=== PATIENT | female | born 1985 | race Caucasian/White ===

== ENCOUNTER 2018-09-20 18:46 | Emergency (ER) | payer SELFPAY ==
[2018-09-20 19:48] LABS: Hematocrit 39.3 % (30.3-42.9); Hemoglobin 12.8 gm/dl (10.1-14.3); Mean Corpuscular HGB Conc 33 % (30-34); Mean Corpuscular Volume 77 fl (79-97); Platelet Count 298 K/mm3 (140-440); Red Blood Count 5.13 M/mm3 (3.65-5.03); Red Cell Distribution Width 13.4 % (13.2-15.2)
[2018-09-20 19:59] LABS: BUN/Creatinine Ratio 18; Blood Urea Nitrogen 11 mg/dL (7-17); Calcium 9.4 mg/dL (8.4-10.2); Hemolysis Index 6
[2018-09-20 20:23] LABS: Bacteria,Urine 1+ /HPF (Negative); Bilirubin,Urine NEG (Negative); Blood,Urine NEG (Negative); Color,Urine Straw (Yellow); Protein,Urine <15 mg/dL mg/dL (Negative); Urobilinogen,Urine < 2.0 mg/dL (<2.0)
[2018-09-20 20:28] LABS: HCG Qualitative,Urine Negative (Negative)
--- NOTE | 2018-09-20 22:03 | Emergency Department Report ---
ED Headache HPI - General Chief Complaint: Headache Stated Complaint: HBP/HEADACHE/VOMITING Time Seen by Provider: 09/20/18 21:57 - History of Present Illness Initial Comments: 33-year-old Serbian female comes in plane of headache nausea vomiting dizziness. Patient was here last week for the same issues but has not followed up. Patient reports that she has no headache at this time as she had taken her Fioricet at 1800 until her Excedrin Migraine at 1700. Patient reports that she had a fever a few days ago at MAXIMUM TEMPERATURE of 103 and she had nausea and vomiting yesterday. Patient reports that she feels much better after taking her medications. Patient was prescribed. Fioricet 09/11/2018. Patient denies any neurological deficits. Quality: severe (has resolved.) Head Injury Location: frontal, temporal Recent Head Trauma: frequent headaches Associated Symptoms: fever/chills (resolved), nausea/vomiting (resolved) Allergies/Adverse Reactions: Allergies No Known Allergies Allergy (Verified 11/24/15 20:13) Home Medications: Ambulatory Orders Pnv Plus Multivit Tab 1 cap PO QDAY 11/24/15 Butalb/Acetaminophen/Caffeine [Fioricet 50-300-40 mg CAP] 1 cap PO Q6HR PRN #24 cap 09/11/18 amLODIPine [Norvasc] 2.5 mg PO DAILY #30 tab 09/20/18 ED Review of Systems ROS: Stated complaint: HBP/HEADACHE/VOMITING Other details as noted in HPI Comment: All other systems reviewed and negative Neurological: headache (resolved) ED Past Medical Hx - Past Medical History Previous Medical History?: Yes Hx Hypertension: No Hx Congestive Heart Failure: No Hx Diabetes: No Hx Deep Vein Thrombosis: No Hx Renal Disease: No Hx Sickle Cell Disease: No Hx Headaches / Migraines: Yes Hx Seizures: No Hx Asthma: No Hx COPD: No Hx HIV: No - Surgical History Past Surgical History?: No - Social History Smoking Status: Never Smoker Substance Use Type: None - Medications Home Medications: Home Medications Medication Instructions Recorded Confirmed Last Taken Type Pnv Plus Multivit Tab 1 cap PO QDAY 11/24/15 11/25/15 11/23/15 History 1 Butalb/Acetaminophen/Caffeine 1 cap PO Q6HR PRN #24 cap 09/11/18 Unknown Rx [Fioricet 50-300-40 mg CAP] amLODIPine [Norvasc] 2.5 mg PO DAILY #30 tab 09/20/18 Unknown Rx ED Physical Exam - General Limitations: No Limitations General appearance: alert - Head Head exam: Present: atraumatic, normocephalic - Eye Eye exam: Present: PERRL, EOMI - ENT ENT exam: Present: mucous membranes moist - Respiratory Respiratory exam: Present: normal lung sounds bilaterally. Absent: respiratory distress - Cardiovascular Cardiovascular Exam: Present: regular rate, normal rhythm. Absent: systolic murmur, diastolic murmur, rubs, gallop - Expanded Neurological Exam Expanded Speech: Present: fluid speech Cranial nerves: EOM's Intact: Normal, Gag Reflex: Normal, Tongue Deviation: Normal, Nystagmus: Normal, Facial Sensation: Normal, Facial Palsy with Forehead Movement: Normal, Facial Palsy without Forehead Movement: Normal Cerebellar function: Finger to Nose: Normal, Heel to [place]: Normal, Romberg: Normal Upper motor neuron: Ronan Neglect: Normal, Pronator Drift: Normal, Babinski Sign: Normal, Sensory Extinction: Normal Sensory exam: Upper Extremity Light Touch: Normal, Upper Extremity Pin Prick: Normal, Upper Extremity Temperature: Normal, UE 2 Point Discrimination: Normal, Lower Extremity Light Touch: Normal, Lower Extremity Pin Prick: Normal, Lower Extremity Temperature: Normal, LE 2 Point Discrimination: Normal Motor strength exam: RUE: 4, LUE: 4, RLE: 4, LLE: 4 Best Eye Response (Loyal): (4) open spontaneously Best Motor Response (Allyson): (6) obeys commands Best Verbal Response (Loyal): (5) oriented Allyson Total: 15 - Psychiatric Psychiatric exam: Present: normal affect, normal mood - Skin Skin exam: Present: warm, dry, intact, normal color. Absent: rash ED Course Vital Signs 09/20/18 18:57 Temperature 97.7 F Pulse Rate 72 Respiratory 16 Rate Blood Pressure 147/102 O2 Sat by Pulse 100 Oximetry ED Medical Decision Making - Lab Data Result diagrams: 09/20/18 19:25 09/20/18 19:25 - Medical Decision Making Patient has been evaluated by this provider in fast track. Patient's headache has resolved since she had taken her fioricet an Excedrin prior to arrival. Head CT was ordered which shows normal examination. Discussed patient since her blood pressures marginally elevated with a diastolic of 102 that I will start her on amlodipine 2.5 mg and for her to check her blood pressure at home as she does often in if diastolic numbers still above 92 increase her amlodipine to 5 mg daily. I discussed the patient that she needs to follow-up with the primary care provider and her neurologist. I have referred her to [address] in her neurologist. Patient verbalized understanding Critical care attestation.: If time is entered above; I have spent that time in minutes in the direct care of this critically ill patient, excluding procedure time. ED Disposition Clinical Impression: Elevated blood pressure reading without diagnosis of hypertension Headache Qualifiers: Headache type: tension-type Headache chronicity pattern: acute headache Intractability: intractable Qualified Code(s): G44.201 - Tension-type headache, unspecified, intractable Disposition: DC-01 TO HOME OR SELFCARE Is pt being admited?: No Does the pt Need Aspirin: No Condition: Stable Instructions: Low Sodium Diet (ED), DASH Eating Plan (ED), Hypertension (ED), Aspirin Combination (By mouth), Tension Headache (ED) Additional Instructions: Please take medication as prescribed. It is very important for you to follow-up with a primary care provider and her neurologist. I have listed their information below for your convenience. Prescriptions: amLODIPine [Norvasc] 2.5 mg PO DAILY #30 tab Referrals: SERGIO BARKER MD [Primary Care Provider] - 3-5 Days [facility] [Provider Group] - 3-5 Days EDMUNDO KERR MD [Referring] - 3-5 Days Forms: Accompanied Note
--- NOTE | 2018-09-20 22:13 | Cat Scan Report ---
FINAL REPORT EXAM: CT HEAD/BRAIN WO CON HISTORY: dizziness,N/V,headaches TECHNIQUE: 2.5 millimeter axial images from the skullbase to the vertex. Comparison: None FINDINGS: There is no evidence of an acute intracranial process, intracranial hemorrhage or mass effect. The ventricles are normal size. The visualized portions of the orbits, paranasal and mastoid sinuses are unremarkable. The bony structures are unremarkable. IMPRESSION: 1. No evidence of an acute intracranial process, intracranial hemorrhage or mass effect. If there is a clinical suspicion of an acute intracranial process, MRI brain may be helpful for furth er evaluation.
[2018-09-20 23:32] VITALS: BP 132/94
== END 2018-09-20 23:31 | disposition home or self-care (01) ==
LOC: ED 18:46
DX: G44.201 Tension-type headache, unspecified, intractable (principal); R03.0 Elevated blood-pressure reading, without diagnosis of hypertension
CPT/HCPCS: 36415; 70450; 80048; 81001; 81025; 85027

== ENCOUNTER 2019-12-19 22:58 | Emergency (ER) | payer SELFPAY ==
[2019-12-20] MEDS ORDERED: LIDOCAINE-MPF (1%) 10 MG/1 ML VIAL 5 ML INFILTRATI ONE (02:17)
[2019-12-20] MEDS ORDERED: LIDOCAINE-MPF (1%) 10 MG/1 ML VIAL 5 ML ONE (02:17)
[2019-12-20] MEDS ORDERED: ONDANSETRON 4 MG ODT TAB PO ONE (02:20)
[2019-12-20] MEDS ORDERED: IBUPROFEN 600 MG TAB PO ONE (02:20)
[2019-12-20] MEDS ORDERED: HYDROcodone/ACETAMINOPHEN 5-325 MG TAB PO ONE (02:20)
[2019-12-20] MEDS ORDERED: TETANUS,DIPH,PERTUSS(ACELL) VACCINE 0.5 ML SYRINGE IM ONE (02:20)
--- NOTE | 2019-12-20 04:58 | Emergency Department Report ---
- General Chief Complaint: Wound/Laceration Stated Complaint: LEFT FINGER LACERTION Source: patient Mode of arrival: Ambulatory Limitations: No Limitations - History of Present Illness Initial Comments: Patient is a 34-year-old Irish [place] female with no past medical history who presented to the ED with complaint of acute onset persistent painful bleeding left index finger laceration after she accidentally cut her distal left index finger when cutting potatoes at home about 2 hours ago. Patient states that the bleeding is not controlled at this time. Patient also states that she is not up-to-date with her tetanus vaccinations. Patient denies dizziness, numbness and tingling or weakness of left hand or left index finger, nausea, vomiting, fall, or headache. -: Sudden, hour(s) (2) Location: other (left index finger) Extremity Location: Left: Hand (Left index finger laceration) Place: home Patient Tetanus UTD: No (Given booster tetanus vaccination during this visit) Context: accidental, sharp object use Associated Symptoms: pain. denies: loss of feeling/numbness, suspect foreign body present, unable to move injured part, weakness followed by dizziness, nausea/vomiting, fever, other - Related Data Home Medications Medication Instructions Recorded Confirmed Last Taken Pnv Plus Multivit Tab 1 cap PO QDAY 11/24/15 11/25/15 11/23/15 1 Previous Rx's Medication Instructions Recorded Last Taken Type Butalb/Acetaminophen/Caffeine 1 cap PO Q6HR PRN #24 cap 09/11/18 Unknown Rx [Fioricet 50-300-40 mg CAP] amLODIPine 2.5 mg PO DAILY #30 tab 09/20/18 Unknown Rx Ibuprofen [Motrin] 600 mg PO Q8H PRN #24 tablet 12/20/19 Unknown Rx cephALEXin [Keflex] 500 mg PO Q8HR #30 cap 12/20/19 Unknown Rx Allergies Allergy/AdvReac Type Severity Reaction Status Date / Time No Known Allergies Allergy Verified 11/24/15 20:13 ED Review of Systems ROS: Stated complaint: LEFT FINGER LACERTION Other details as noted in HPI Constitutional: denies: chills, fever Eyes: denies: eye pain, eye discharge, vision change ENT: denies: ear pain, throat pain Respiratory: denies: cough, shortness of breath, wheezing Cardiovascular: denies: chest pain, palpitations Endocrine: no symptoms reported Gastrointestinal: denies: abdominal pain, nausea, diarrhea Genitourinary: denies: urgency, dysuria, discharge Musculoskeletal: arthralgia (left index finger pain due to a bleeding laceration). denies: back pain, joint swelling Skin: other (Bleeding left index finger laceration). denies: rash, lesions Neurological: denies: headache, weakness, paresthesias Psychiatric: denies: anxiety, depression Hematological/Lymphatic: denies: easy bleeding, easy bruising ED Past Medical Hx - Past Medical History Previous Medical History?: Yes Hx Hypertension: Yes Hx Congestive Heart Failure: No Hx Diabetes: No Hx Deep Vein Thrombosis: No Hx Renal Disease: No Hx Sickle Cell Disease: No Hx Headaches / Migraines: Yes Hx Seizures: No Hx Asthma: No Hx COPD: No Hx HIV: No - Surgical History Past Surgical History?: No - Social History Smoking Status: Never Smoker Substance Use Type: None - Medications Home Medications: Home Medications Medication Instructions Recorded Confirmed Last Taken Type Pnv Plus Multivit Tab 1 cap PO QDAY 11/24/15 11/25/15 11/23/15 History 1 Butalb/Acetaminophen/Caffeine 1 cap PO Q6HR PRN #24 cap 09/11/18 Unknown Rx [Fioricet 50-300-40 mg CAP] amLODIPine 2.5 mg PO DAILY #30 tab 09/20/18 Unknown Rx Ibuprofen [Motrin] 600 mg PO Q8H PRN #24 tablet 12/20/19 Unknown Rx cephALEXin [Keflex] 500 mg PO Q8HR #30 cap 12/20/19 Unknown Rx ED Physical Exam - General Limitations: No Limitations General appearance: alert, in no apparent distress - Head Head exam: Present: atraumatic, normocephalic, normal inspection - Eye Eye exam: Present: normal appearance, PERRL, EOMI Pupils: Present: normal accommodation - ENT ENT exam: Present: normal exam, normal orophraynx, mucous membranes moist, TM's normal bilaterally, normal external ear exam - Neck Neck exam: Present: normal inspection, full ROM. Absent: tenderness - Respiratory Respiratory exam: Present: normal lung sounds bilaterally. Absent: respiratory distress, wheezes, rales, rhonchi, chest wall tenderness, decreased breath sounds, other - Cardiovascular Cardiovascular Exam: Present: regular rate, normal rhythm, normal heart sounds. Absent: systolic murmur, diastolic murmur, rubs, gallop - GI/Abdominal GI/Abdominal exam: Present: soft, normal bowel sounds. Absent: tenderness, rebound, hyperactive bowel sounds, hypoactive bowel sounds, organomegaly - Extremities Exam Extremities exam: Present: normal inspection, full ROM, tenderness (Palpable left index finger tenderness due to a bleeding 3 cm laceration on palmar side), normal capillary refill. Absent: calf tenderness - Back Exam Back exam: Present: normal inspection, full ROM. Absent: tenderness, CVA tenderness (R), CVA tenderness (L), muscle spasm, paraspinal tenderness - Neurological Exam Neurological exam: Present: alert, oriented X3, CN II-XII intact, normal gait, reflexes normal - Psychiatric Psychiatric exam: Present: normal affect, normal mood - Skin Skin exam: Present: warm, dry, intact, normal color, other (Bleeding distal left index finger 3 cm laceration on palmar side). Absent: rash ED Course Vital Signs 12/19/19 23:08 Temperature 98.2 F Pulse Rate 80 Respiratory 18 Rate Blood Pressure 142/100 O2 Sat by Pulse 100 Oximetry - Laceration /Wound Repair Left Distal Finger Wound Location: upper extremity (Distal left index finger on palmar side) Wound Length (cm): 3 Wound's Depth, Shape: superficial, linear Wound Explored: contaminated Irrigated w/ Saline (ccs): 50 Betadine Prep?: Yes Anesthesia: 1% Lidocaine Volume Anesthetic (ccs): 5 Wound Debrided: extensive Wound Repaired With: sutures Suture Size/Type: 4:0, proline Number of Sutures: 7 Layer Closure?: No Sterile Dressing Applied?: Yes Progress: Patient tolerated the procedure well. Patient was discharged home on medications including prophylactic antibiotics and was advised to return to the ED in 12 to 14 days for suture removal or immediately if symptoms get worse. ED Medical Decision Making - Medical Decision Making This is a 34-year-old female who presented to the ED with acute onset painful bleeding distal left index finger laceration after she accidentally cut her left finger when cutting some potatoes at home. In the ED, patient is alert and oriented x3 and is not in distress. Patient was treated for pain in the ED and the left index finger laceration was sutured per protocol. Patient tolerated the procedure well and was discharged home on pain medications and prophylactic antibiotics. Patient was advised to return to the ED immediately if symptoms get worse, otherwise return to the ED in 12 to 14 days for suture removal. - Differential Diagnosis laceration; puncture wound; tendon injury Critical care attestation.: If time is entered above; I have spent that time in minutes in the direct care of this critically ill patient, excluding procedure time. ED Disposition Clinical Impression: Laceration of left index finger w/o foreign body w/o damage to nail Qualifiers: Encounter type: initial encounter Qualified Code(s): S61.211A - Laceration without foreign body of left index finger without damage to nail, initial encounter Disposition: TO HOME OR SELFCARE Is pt being admited?: No Does the pt Need Aspirin: No Condition: Stable Instructions: Finger Laceration (ED) Additional Instructions: Take medication with food, drink plenty of fluids and follow-up with your primary care physician in 7 to 10 days for reevaluation. Return to the ED immediately if symptoms get worse. Otherwise return to the ED in 12 to 14 days for suture removal. Prescriptions: cephALEXin [Keflex] 500 mg PO Q8HR #30 cap Ibuprofen [Motrin] 600 mg PO Q8H PRN #24 tablet PRN Reason: Pain Referrals: REGLA HECK MD [Staff Physician] - 7-10 days Time of Disposition: 04:58 Print Language: MALTESE
[2019-12-20 05:31] VITALS: BP 135/87
== END 2019-12-20 05:05 | disposition home or self-care (01) ==
LOC: ED 22:58
DX: S61.211A Laceration without foreign body of left index finger without damage to nail, initial encounter (principal); I10 Essential (primary) hypertension; G43.909 Migraine, unspecified, not intractable, without status migrainosus; Z79.899 Other long term (current) drug therapy; W26.0XXA Contact with knife, initial encounter; Y93.89 Activity, other specified; Y92.098 Other place in other non-institutional residence as the place of occurrence of the external cause; Y99.8 Other external cause status
CPT/HCPCS: 90471; 90715; 99282; Q0162

== ENCOUNTER 2020-01-03 15:45 | Emergency (ER) | payer SELFPAY ==
[2020-01-03 15:51] VITALS: BP 138/92
--- NOTE | 2020-01-03 16:02 | Emergency Department Report ---
Suture/Staple Removal - [facility] Chief Complaint: Medical Clearance Stated Complaint: REMOVE STICHES Time Seen by Provider: 01/03/20 15:53 When Sutures or Emile Placed: 11-14 Days Ago Wound Location: lreft index finger ED Review of Systems ROS: Stated complaint: REMOVE STICHES Other details as noted in HPI Constitutional: denies: chills, fever Eyes: denies: eye pain, eye discharge, vision change ENT: denies: ear pain, throat pain Respiratory: denies: cough, shortness of breath, wheezing Cardiovascular: denies: chest pain, palpitations Endocrine: no symptoms reported Gastrointestinal: denies: abdominal pain, nausea, diarrhea Genitourinary: denies: urgency, dysuria, discharge Musculoskeletal: denies: back pain, joint swelling, arthralgia Skin: denies: rash, lesions Neurological: denies: headache, weakness, paresthesias Psychiatric: denies: anxiety, depression Hematological/Lymphatic: denies: easy bleeding, easy bruising ED Past Medical Hx - Past Medical History Previous Medical History?: Yes Hx Hypertension: Yes Hx Congestive Heart Failure: No Hx Diabetes: No Hx Deep Vein Thrombosis: No Hx Renal Disease: No Hx Sickle Cell Disease: No Hx Headaches / Migraines: Yes Hx Seizures: No Hx Asthma: No Hx COPD: No Hx HIV: No - Surgical History Past Surgical History?: No - Social History Smoking Status: Never Smoker Substance Use Type: None - Medications Home Medications: Home Medications Medication Instructions Recorded Confirmed Last Taken Type Pnv Plus Multivit Tab 1 cap PO QDAY 11/24/15 11/25/15 11/23/15 History 1 Butalb/Acetaminophen/Caffeine 1 cap PO Q6HR PRN #24 cap 09/11/18 Unknown Rx [Fioricet 50-300-40 mg CAP] amLODIPine 2.5 mg PO DAILY #30 tab 09/20/18 Unknown Rx Ibuprofen [Motrin] 600 mg PO Q8H PRN #24 tablet 12/20/19 Unknown Rx cephALEXin [Keflex] 500 mg PO Q8HR #30 cap 12/20/19 Unknown Rx Suture Removal Exam - Exam General: Vital signs noted. No distress. Alert and acting appropriately. Wound: No Pathologic Erythema, No Tenderness, No Drainage, No Pus, No Wound Dehiscence Other Systems: All other systems reviewed and are unremarkable. ED Course Vital Signs 01/03/20 15:48 Temperature 98.3 F Pulse Rate 95 H Respiratory 18 Rate Blood Pressure 138/92 O2 Sat by Pulse 100 Oximetry - Reevaluation(s) Reevaluation #1: 01/03/20 16:01 Patient is speaking in full sentences with no signs of distress noted. ED Recheck MDM - Medical Decision Making This is a 34-year-old female that presents with suture removal. She is stable and was examined by me. Total of 7 sutures has been removed and patient tolerated well. No signs of wound dehiscence, drainage, or cellulitis. Patient was referred to Follow-up with a primary care doctor in 3-5 days or if symptoms worsen and continue return to emergency room as soon as possible. At time of discharge, the patient does not seem toxic or ill in appearance. No acute signs of distress noted. Patient agrees to discharge treatment plan of care. No further questions noted by the patient. Critical care attestation.: If time is entered above; I have spent that time in minutes in the direct care of this critically ill patient, excluding procedure time. ED Disposition Clinical Impression: Visit for suture removal Disposition: DC-01 TO HOME OR SELFCARE Is pt being admited?: No Does the pt Need Aspirin: No Condition: Stable Instructions: Suture Removal (ED) Additional Instructions: Follow-up with a primary care doctor in 3-5 days or if symptoms worsen and continue return to emergency room as soon as possible. Referrals: PRIMARY CAREMD [Referring] - 3-5 Days REGLA HECK MD [Staff Physician] - 3-5 Days
== END 2020-01-03 16:21 | disposition home or self-care (01) ==
LOC: ED 15:45
DX: Z48.02 Encounter for removal of sutures (principal); I10 Essential (primary) hypertension; Z79.899 Other long term (current) drug therapy

== ENCOUNTER 2021-04-27 19:06 | Inpatient (IN) | payer MEDICAID ==
[2021-04-27 20:41] LABS: Bilirubin,Urine NEG (Negative); Blood,Urine NEG (Negative); Color,Urine Yellow (Yellow); Mucus,Urine FEW /HPF; Protein,Urine <15 mg/dL mg/dL (Negative); Urobilinogen,Urine < 2.0 mg/dL (<2.0)
[2021-04-27 21:59] LABS: Hematocrit 37.4 % (30.3-42.9); Hemoglobin 12.4 gm/dl (10.1-14.3); Mean Corpuscular HGB Conc 33 % (30-34); Mean Corpuscular Volume 78 fl (79-97); Platelet Count 170 K/mm3 (140-440); Red Blood Count 4.82 M/mm3 (3.65-5.03); Red Cell Distribution Width 15.3 % (13.2-15.2)
[2021-04-27 22:19] LABS: Alanine Aminotransferase 12 units/L (7-56); Uric Acid 4.9 mg/dL (3.5-7.6)
[2021-04-27] MEDS ORDERED: PROMETHAZINE 25 MG TAB PO PRN (22:29)
[2021-04-27] MEDS ORDERED: ACETAMINOPHEN 325 MG TAB PO PRN (22:29)
[2021-04-27] MEDS ORDERED: TERBUTALINE 1 MG/1 ML INJ SUB-Q PRN (22:29)
[2021-04-27] MEDS ORDERED: OXYTOCIN 10 UNIT/1 ML INJ IM PRN (22:29)
[2021-04-27] MEDS ORDERED: LIDOCAINE (2%) 20 MG/1 ML VIAL 20 ML MDV INFILTRATI ONE (22:29)
[2021-04-27] MEDS ORDERED: miSOPROStol 200 MCG TAB PR PRN (22:29)
[2021-04-27] MEDS ORDERED: CARBOPROST TROMETHAMINE 250 MCG/1 ML INJ IM PRN (22:29)
[2021-04-27] MEDS ORDERED: fentaNYL 100 MCG/2 ML INJ IV PRN (22:29)
[2021-04-27] MEDS ORDERED: NalbUPHINE 10 MG/1 ML INJ IV PRN (22:29)
[2021-04-27] MEDS ORDERED: ONDANSETRON 4 MG/2 ML INJ IV PRN (22:29)
[2021-04-27] MEDS ORDERED: MINERAL OIL 30 ML ORAL LIQD PO PRN (22:29)
[2021-04-27] MEDS ORDERED: LOPERAMIDE 2 MG CAP PO PRN (22:29)
[2021-04-27] MEDS ORDERED: METHYLERGONOVINE MALEATE 0.2 MG/ML VIAL IM PRN (22:29)
[2021-04-27] MEDS ORDERED: ePHEDrine SULFATE 50 MG/1 ML INJ IV PRN (22:29)
--- NOTE | 2021-04-27 22:41 | History and Physical Report ---
History of Present Illness Date of examination: 04/27/21 Date of admission: 04/27/21 Chief complaint: pt seen in triage, BP elevated and pt with chronic HTN and non-compliant with taking meds ordered. Pt states she controls it with her diet History of present illness: at 37.4wks by LMP c/w EDC. care at [facility]. Pt came to triage after being accidentally spilling a cup of hot tea directly on her abdomen on the right and placed toothpaste for comfort. Pt denies headache. Denies change in vision. Pt states that she has not been taking any labetalol med because she controls her BP by diet only. pt has history of gestational diabetes. Pt admits to movement, denies leakage of fluid or vaginal bleeding. pt admits to contractions and desires epidural. records with Rh neg and pt received rhogam 02/02/21; Rubella immune, VDRL neg, HIV neg, Hep BsAg neg; 1hrgtt 122 and GBS neg. Past History Past Medical History: hypertension, other (Gestational diabetes; Rh negative nad received rhogam 02/02/21; Alpha thal trait, Varicella non-immune) Past Surgical History: no surgical history Social history: no significant social history - Obstetrical History Expected Date of Delivery: 05/14/21 Actual Gestation: 37 Week(s) 5 Day(s) : 4 Hx # Term Pregnancies: 2 (Vacuum asst with 1st preg and GDM; CHTN with both preg) Spontaneous Abortions: 1 Number of Living Children: 2 Medications and Allergies Allergies Allergy/AdvReac Type Severity Reaction Status Date / Time No Known Allergies Allergy Verified 11/24/15 20:13 Home Medications Medication Instructions Recorded Confirmed Last Taken Type Pnv Plus Multivit Tab 1 cap PO QDAY 11/24/15 11/25/15 11/23/15 History 1 Butalb/Acetaminophen/Caffeine 1 cap PO Q6HR PRN #24 cap 09/11/18 Unknown Rx [Fioricet 50-300-40 mg CAP] amLODIPine 2.5 mg PO DAILY #30 tab 09/20/18 Unknown Rx Ibuprofen [Motrin] 600 mg PO Q8H PRN #24 tablet 12/20/19 Unknown Rx cephALEXin [Keflex] 500 mg PO Q8HR #30 cap 12/20/19 Unknown Rx Review of Systems All systems: negative (Hot tea burn to right side of abdomen and contractions) - Vital Signs Vital signs: Vital Signs Pulse Pulse Ox 85 99 04/27/21 19:34 04/27/21 19:34 Temp Pulse Resp BP Pulse Ox 98.3 F 85 18 143/96 99 04/27/21 19:38 04/27/21 22:33 04/27/21 19:38 04/27/21 22:22 04/27/21 22:33 - Physical Exam Breasts: Positive: deferred Cardiovascular: Regular rate Lungs: Positive: Normal air movement Abdomen: Positive: normal appearance (right side of abdomen where pt placed toothpaste to soothe her hot tea burn, shows no erythema. Pt would not let me touch it.) Genitourinary (Female): Positive: normal external genitalia, normal perenium Vulva: both: normal Vagina: Positive: normal moisture Uterus: Positive: enlarged (non-tender gravid) - Obstetrical FHR: category 1 Uterine Contraction Monitor Mode: External Cervical Dilatation: 4 Cervical Effacement Percentage: 50 station: -3 Uterine Contraction Frequency (min): 3-8min Uterine Contraction Pattern: Irregular Uterine Contraction Intensity: Moderate Results Result Diagrams: 04/27/21 21:44 04/27/21 21:44 Abnormal lab results 04/27/21 04/27/21 Range/Units 20:20 21:44 MCV 78 L (79-97) fl MCH 26 L (28-32) pg RDW 15.3 H (13.2-15.2) % Urine WBC (Auto) 9.0 H (0.0-6.0) /HPF All other labs normal. Assessment and Plan Term IUP, latent labor with chronic HTN, non-compliant and pt reports skin burn to right side of abdomen, grossly appears normal; Rh neg s/p rhogam; Varicella non-immune; Alpha thalassemia silent carrier and FOB status unknown. GBS neg 1. Admit to labor and delivery, PIH labs; counseled on the importance of labetalol and possible IV mag sulfate if superimposed preeclampsia 2. Augment with pitocin 3. May have epidural when desired 4. For rhogam if fetus Rh positive Plan of care discussed with patient and all questions encouraged and answered
[2021-04-27] MEDS ORDERED: OXYTOCIN DRIP 30 UNITS/500 ML BAG IV SCH ×2 (23:00)
[2021-04-27] MEDS: LACTATED RINGERS 1,000 ML IV SCH (23:53)
[2021-04-28] MEDS ORDERED: NALOXONE 2 MG/2 ML INJ IV PRN (00:24)
--- NOTE | 2021-04-28 00:24 | Anesthesia Consultation ---
Anesthesia Consult and Med Hx Date of service: 04/28/21 - Airway Anesthetic Teeth Evaluation: Good ROM Head & Neck: Adequate Mental/Hyoid Distance: Adequate Mallampati Class: Class II Intubation Access Assessment: Probably Good - Pulmonary Exam CTA: Yes - Cardiac Exam Cardiac Exam: RRR - Pre-Operative Health Status ASA Pre-Surgery Classification: ASA3 Proposed Anesthetic Plan: Epidural - Pulmonary Hx Asthma: No COPD: No Hx Pneumonia: No - Cardiovascular System Hx Hypertension: Yes - Central Nervous System Hx Seizures: No Hx Psychiatric Problems: No - Endocrine Hx Renal Disease: No Hx End Stage Renal Disease: No Hx Non-Insulin Dependent Diabetes: Yes Hx Hypothyroidism: No Hx Hyperthyroidism: No - Hematic Hx Anemia: No Hx Sickle Cell Disease: No - Other Systems Hx Alcohol Use: No
--- NOTE | 2021-04-28 00:44 | Progress Note ---
Labor Epidural - Labor Epidural Start Time: 00:30 Stop Time: 00:37 Performed by:: CRISTINA DUNAWAY Procedure: Patient is requesting epidural for labor pain. H&P, and labs reviewed. Procedure explained, questions answered, consent obtained. Patient in sitting position with blood pressure cuff and pulse ox on and working. Timeout performed immediately before start of procedure. Sterile chlorahexadine 0.5% prep/drape. 3 mL 1% lidocaine skin wheal at L[3]-L[4]. 18-gauge WooMetead epidural needle advanced to [id number] with saline at [7] cm. 27-gauge spinal needle advanced until clear, free-flowing CSF. Intrathecal dexmedetomidine [5] mcg administered and needle removed. Epidural catheter advanced to [12] cm, negative aspiration for blood and csf, negative test dose 3 ml 1.5% lidocaine with epinephrine. Sterile steri-strips and tegaderm applied, followed by tape reinforcement. Patient tolerated procedure well.
[2021-04-28] MEDS: fentaNYL-BUPIV 2 MCG/ML-0.125% 200 MCG/100 ML BAG EPIDURAL SCH ×2 (01:02→09:29)
[2021-04-28] MEDS: ePHEDrine SULFATE 50 MG/1 ML INJ IV PRN ×2 (02:39→05:55)
[2021-04-28] MEDS: LACTATED RINGERS 1,000 ML IV SCH ×2 (02:49→11:30)
--- NOTE | 2021-04-28 06:15 | Event Note ---
Date: 04/28/21 pt evaluated and FHR category I, pt comfortable with epidural, pelvic 5/70/-2 and ballotable. Will reposition pt in high fowlers position and will AROM when head descend and not ballotable. Will continue IV pitocin. Expect .
--- NOTE | 2021-04-28 09:58 | Progress Note ---
Assessment and Plan A: IUP@ 37.5 wks with CHTN RH neg GBS neg P: Continue monitoring with Pitocin AROM (light mec) IFM/IUPC placed Offer Rhogam pp Anticipate Subjective - Subjective Date of service: 04/28/21 Principal diagnosis: IUP@ 37.5 wks Patient reports: movement normal Objective - Vital Signs Vital Signs: Vital Signs - 12hr 04/27/21 04/27/21 04/27/21 21:58 22:03 22:08 Temperature Pulse Rate 93 H 91 H 76 Respiratory Rate Blood Pressure O2 Sat by Pulse 98 98 98 Oximetry O2 Sat by Pulse Oximetry [ Bilateral] 04/27/21 04/27/21 04/27/21 22:09 22:13 22:18 Temperature Pulse Rate 77 93 H 88 Respiratory Rate Blood Pressure 135/87 O2 Sat by Pulse 97 98 Oximetry O2 Sat by Pulse Oximetry [ Bilateral] 04/27/21 04/27/21 04/27/21 22:22 22:23 22:28 Temperature Pulse Rate 88 89 95 H Respiratory Rate Blood Pressure 143/96 O2 Sat by Pulse 99 98 Oximetry O2 Sat by Pulse Oximetry [ Bilateral] 04/27/21 04/27/21 04/27/21 22:33 22:38 23:05 Temperature Pulse Rate 85 86 87 Respiratory Rate Blood Pressure 136/86 O2 Sat by Pulse 99 99 99 Oximetry O2 Sat by Pulse Oximetry [ Bilateral] 04/27/21 04/27/21 04/27/21 23:10 23:15 23:20 Temperature Pulse Rate 84 92 H 90 Respiratory Rate Blood Pressure O2 Sat by Pulse 99 98 99 Oximetry O2 Sat by Pulse Oximetry [ Bilateral] 04/27/21 04/27/21 04/27/21 23:21 23:22 23:25 Temperature Pulse Rate 81 88 90 Respiratory Rate Blood Pressure 127/83 127/83 O2 Sat by Pulse 97 Oximetry O2 Sat by Pulse Oximetry [ Bilateral] 04/27/21 04/27/21 04/27/21 23:30 23:35 23:40 Temperature Pulse Rate 91 H 83 82 Respiratory Rate Blood Pressure O2 Sat by Pulse 99 99 99 Oximetry O2 Sat by Pulse Oximetry [ Bilateral] 04/27/21 04/27/21 04/28/21 23:50 23:55 00:00 Temperature 98.2 F Pulse Rate 83 84 83 Respiratory 16 Rate Blood Pressure O2 Sat by Pulse 100 99 99 Oximetry O2 Sat by Pulse Oximetry [ Bilateral] 04/28/21 04/28/21 04/28/21 00:05 00:07 00:10 Temperature Pulse Rate 86 81 83 Respiratory Rate Blood Pressure 131/84 O2 Sat by Pulse 99 99 Oximetry O2 Sat by Pulse Oximetry [ Bilateral] 04/28/21 04/28/21 04/28/21 00:15 00:20 00:25 Temperature Pulse Rate 86 84 84 Respiratory Rate Blood Pressure O2 Sat by Pulse 99 100 98 Oximetry O2 Sat by Pulse Oximetry [ Bilateral] 04/28/21 04/28/21 04/28/21 00:30 00:35 00:37 Temperature Pulse Rate 92 H 91 H 86 Respiratory Rate Blood Pressure 122/86 O2 Sat by Pulse 99 98 Oximetry O2 Sat by Pulse Oximetry [ Bilateral] 04/28/21 04/28/21 04/28/21 00:40 00:41 00:43 Temperature Pulse Rate 94 H 96 H 80 Respiratory Rate Blood Pressure 130/83 125/87 O2 Sat by Pulse 98 Oximetry O2 Sat by Pulse Oximetry [ Bilateral] 04/28/21 04/28/21 04/28/21 00:45 00:47 00:49 Temperature Pulse Rate 83 84 82 Respiratory Rate Blood Pressure 120/73 118/73 116/71 O2 Sat by Pulse 98 Oximetry O2 Sat by Pulse Oximetry [ Bilateral] 04/28/21 04/28/21 04/28/21 00:50 00:51 00:53 Temperature Pulse Rate 89 91 H 85 Respiratory Rate Blood Pressure 118/71 119/71 O2 Sat by Pulse 98 Oximetry O2 Sat by Pulse Oximetry [ Bilateral] 04/28/21 04/28/21 04/28/21 00:55 00:57 00:58 Temperature Pulse Rate 84 90 91 H Respiratory Rate Blood Pressure 117/75 116/77 115/74 O2 Sat by Pulse 99 Oximetry O2 Sat by Pulse Oximetry [ Bilateral] 04/28/21 04/28/21 04/28/21 01:00 01:01 01:03 Temperature Pulse Rate 86 80 87 Respiratory Rate Blood Pressure 116/73 116/69 O2 Sat by Pulse 97 Oximetry O2 Sat by Pulse Oximetry [ Bilateral] 04/28/21 04/28/21 04/28/21 01:05 01:10 01:15 Temperature Pulse Rate 90 85 91 H Respiratory Rate Blood Pressure O2 Sat by Pulse 97 97 97 Oximetry O2 Sat by Pulse Oximetry [ Bilateral] 04/28/21 04/28/21 04/28/21 01:20 01:25 01:30 Temperature Pulse Rate 84 88 87 Respiratory Rate Blood Pressure 113/57 O2 Sat by Pulse 97 96 96 Oximetry O2 Sat by Pulse Oximetry [ Bilateral] 04/28/21 04/28/21 04/28/21 01:34 01:35 01:40 Temperature Pulse Rate 93 H 97 H 92 H Respiratory Rate Blood Pressure 106/57 O2 Sat by Pulse 96 96 Oximetry O2 Sat by Pulse Oximetry [ Bilateral] 04/28/21 04/28/21 04/28/21 01:45 01:49 01:50 Temperature Pulse Rate 82 94 H 86 Respiratory Rate Blood Pressure 99/54 O2 Sat by Pulse 96 95 Oximetry O2 Sat by Pulse Oximetry [ Bilateral] 04/28/21 04/28/21 04/28/21 01:51 01:55 02:00 Temperature Pulse Rate 87 81 87 Respiratory Rate Blood Pressure 101/60 O2 Sat by Pulse 97 96 Oximetry O2 Sat by Pulse Oximetry [ Bilateral] 04/28/21 04/28/21 04/28/21 02:04 02:05 02:10 Temperature Pulse Rate 98 H 91 H 85 Respiratory Rate Blood Pressure 104/57 O2 Sat by Pulse 97 97 Oximetry O2 Sat by Pulse Oximetry [ Bilateral] 04/28/21 04/28/21 04/28/21 02:15 02:20 02:25 Temperature Pulse Rate 96 H 71 90 Respiratory Rate Blood Pressure 122/70 O2 Sat by Pulse 97 97 97 Oximetry O2 Sat by Pulse Oximetry [ Bilateral] 04/28/21 04/28/21 04/28/21 02:30 02:34 02:35 Temperature Pulse Rate 96 H 88 83 Respiratory Rate Blood Pressure 98/58 O2 Sat by Pulse 97 97 Oximetry O2 Sat by Pulse Oximetry [ Bilateral] 04/28/21 04/28/21 04/28/21 02:40 02:45 02:46 Temperature Pulse Rate 85 81 80 Respiratory Rate Blood Pressure 96/57 O2 Sat by Pulse 97 99 Oximetry O2 Sat by Pulse Oximetry [ Bilateral] 04/28/21 04/28/21 04/28/21 02:48 02:50 02:55 Temperature Pulse Rate 86 92 H 98 H Respiratory Rate Blood Pressure 108/72 O2 Sat by Pulse 98 97 Oximetry O2 Sat by Pulse Oximetry [ Bilateral] 04/28/21 04/28/21 04/28/21 03:00 03:04 03:05 Temperature Pulse Rate 100 H 100 H 99 H Respiratory Rate Blood Pressure 106/73 O2 Sat by Pulse 95 96 Oximetry O2 Sat by Pulse Oximetry [ Bilateral] 04/28/21 04/28/21 04/28/21 03:10 03:15 03:18 Temperature Pulse Rate 95 H 98 H 96 H Respiratory Rate Blood Pressure O2 Sat by Pulse 97 95 94 Oximetry O2 Sat by Pulse Oximetry [ Bilateral] 04/28/21 04/28/21 04/28/21 03:20 03:25 03:30 Temperature Pulse Rate 96 H 97 H 106 H Respiratory Rate Blood Pressure 116/76 O2 Sat by Pulse 96 96 94 Oximetry O2 Sat by Pulse Oximetry [ Bilateral] 04/28/21 04/28/21 04/28/21 03:35 03:40 03:41 Temperature Pulse Rate 98 H 97 H 100 H Respiratory Rate Blood Pressure 107/64 O2 Sat by Pulse 97 95 94 Oximetry O2 Sat by Pulse Oximetry [ Bilateral] 04/28/21 04/28/21 04/28/21 03:45 03:48 03:49 Temperature Pulse Rate 94 H 98 H 100 H Respiratory Rate Blood Pressure 109/67 O2 Sat by Pulse 95 94 Oximetry O2 Sat by Pulse Oximetry [ Bilateral] 04/28/21 04/28/21 04/28/21 03:50 03:53 03:55 Temperature Pulse Rate 99 H 94 H 102 H Respiratory Rate Blood Pressure O2 Sat by Pulse 95 93 95 Oximetry O2 Sat by Pulse Oximetry [ Bilateral] 04/28/21 04/28/21 04/28/21 04:00 04:04 04:05 Temperature Pulse Rate 100 H 97 H 103 H Respiratory Rate Blood Pressure 119/82 O2 Sat by Pulse 97 96 Oximetry O2 Sat by Pulse Oximetry [ Bilateral] 04/28/21 04/28/21 04/28/21 04:10 04:15 04:19 Temperature Pulse Rate 93 H 98 H 96 H Respiratory Rate Blood Pressure 115/79 O2 Sat by Pulse 97 96 Oximetry O2 Sat by Pulse Oximetry [ Bilateral] 04/28/21 04/28/21 04/28/21 04:20 04:25 04:30 Temperature Pulse Rate 99 H 109 H 103 H Respiratory Rate Blood Pressure O2 Sat by Pulse 96 98 98 Oximetry O2 Sat by Pulse Oximetry [ Bilateral] 04/28/21 04/28/21 04/28/21 04:34 04:35 04:40 Temperature Pulse Rate 101 H 102 H 97 H Respiratory Rate Blood Pressure 117/73 O2 Sat by Pulse 96 98 Oximetry O2 Sat by Pulse Oximetry [ Bilateral] 04/28/21 04/28/21 04/28/21 04:45 04:49 04:50 Temperature Pulse Rate 93 H 100 H 106 H Respiratory Rate Blood Pressure 115/80 O2 Sat by Pulse 95 97 Oximetry O2 Sat by Pulse Oximetry [ Bilateral] 04/28/21 04/28/21 04/28/21 04:55 05:00 05:04 Temperature Pulse Rate 100 H 106 H 102 H Respiratory Rate Blood Pressure 117/76 O2 Sat by Pulse 96 96 Oximetry O2 Sat by Pulse Oximetry [ Bilateral] 04/28/21 04/28/21 04/28/21 05:05 05:10 05:15 Temperature Pulse Rate 104 H 88 100 H Respiratory Rate Blood Pressure O2 Sat by Pulse 96 98 96 Oximetry O2 Sat by Pulse Oximetry [ Bilateral] 04/28/21 04/28/21 04/28/21 05:19 05:20 05:25 Temperature Pulse Rate 98 H 87 91 H Respiratory Rate Blood Pressure 92/57 O2 Sat by Pulse 95 95 Oximetry O2 Sat by Pulse Oximetry [ Bilateral] 04/28/21 04/28/21 04/28/21 05:30 05:35 05:39 Temperature Pulse Rate 93 H 92 H 98 H Respiratory Rate Blood Pressure 93/57 O2 Sat by Pulse 96 96 94 Oximetry O2 Sat by Pulse Oximetry [ Bilateral] 04/28/21 04/28/21 04/28/21 05:40 05:45 05:50 Temperature Pulse Rate 97 H 86 91 H Respiratory Rate Blood Pressure 90/53 O2 Sat by Pulse 94 99 96 Oximetry O2 Sat by Pulse Oximetry [ Bilateral] 04/28/21 04/28/21 04/28/21 05:53 05:55 06:00 Temperature Pulse Rate 90 92 H 88 Respiratory Rate Blood Pressure O2 Sat by Pulse 94 97 99 Oximetry O2 Sat by Pulse Oximetry [ Bilateral] 04/28/21 04/28/21 04/28/21 06:05 06:10 06:15 Temperature Pulse Rate 99 H 112 H 104 H Respiratory Rate Blood Pressure 127/81 O2 Sat by Pulse 99 98 98 Oximetry O2 Sat by Pulse Oximetry [ Bilateral] 04/28/21 04/28/21 04/28/21 06:20 06:25 06:30 Temperature Pulse Rate 99 H 94 H 117 H Respiratory Rate Blood Pressure O2 Sat by Pulse 98 98 98 Oximetry O2 Sat by Pulse Oximetry [ Bilateral] 04/28/21 04/28/21 04/28/21 06:35 06:40 06:45 Temperature Pulse Rate 87 124 H 88 Respiratory Rate Blood Pressure O2 Sat by Pulse 98 98 97 Oximetry O2 Sat by Pulse Oximetry [ Bilateral] 04/28/21 04/28/21 04/28/21 06:50 06:55 07:00 Temperature Pulse Rate 110 H 105 H 83 Respiratory Rate Blood Pressure 101/65 O2 Sat by Pulse 96 98 98 Oximetry O2 Sat by Pulse Oximetry [ Bilateral] 04/28/21 04/28/21 04/28/21 07:05 07:09 07:10 Temperature Pulse Rate 108 H 96 H 108 H Respiratory Rate Blood Pressure 114/55 O2 Sat by Pulse 96 97 Oximetry O2 Sat by Pulse Oximetry [ Bilateral] 04/28/21 04/28/21 04/28/21 07:11 07:15 07:19 Temperature 98.7 F Pulse Rate 102 H 107 H Respiratory Rate Blood Pressure 103/58 O2 Sat by Pulse 97 Oximetry O2 Sat by Pulse 96 Oximetry [ Bilateral] 04/28/21 04/28/21 04/28/21 07:20 07:25 07:30 Temperature Pulse Rate 94 H 92 H 94 H Respiratory Rate Blood Pressure O2 Sat by Pulse 96 97 96 Oximetry O2 Sat by Pulse Oximetry [ Bilateral] 04/28/21 04/28/21 04/28/21 07:35 07:37 07:40 Temperature Pulse Rate 88 107 H 92 H Respiratory Rate Blood Pressure 99/62 O2 Sat by Pulse 97 94 97 Oximetry O2 Sat by Pulse Oximetry [ Bilateral] 04/28/21 04/28/21 04/28/21 07:45 07:49 07:50 Temperature Pulse Rate 93 H 90 98 H Respiratory Rate Blood Pressure 93/56 O2 Sat by Pulse 95 96 Oximetry O2 Sat by Pulse Oximetry [ Bilateral] 04/28/21 04/28/21 04/28/21 07:54 07:55 08:00 Temperature Pulse Rate 98 H 86 94 H Respiratory Rate Blood Pressure O2 Sat by Pulse 94 96 96 Oximetry O2 Sat by Pulse Oximetry [ Bilateral] 04/28/21 04/28/21 04/28/21 08:04 08:05 08:10 Temperature Pulse Rate 90 89 83 Respiratory Rate Blood Pressure 103/69 O2 Sat by Pulse 95 97 Oximetry O2 Sat by Pulse Oximetry [ Bilateral] 04/28/21 04/28/21 04/28/21 08:15 08:20 08:25 Temperature Pulse Rate 90 99 H 99 H Respiratory Rate Blood Pressure 103/61 O2 Sat by Pulse 97 98 96 Oximetry O2 Sat by Pulse Oximetry [ Bilateral] 04/28/21 04/28/21 04/28/21 08:30 08:35 08:40 Temperature Pulse Rate 100 H 98 H 95 H Respiratory Rate Blood Pressure 122/76 O2 Sat by Pulse 99 98 99 Oximetry O2 Sat by Pulse Oximetry [ Bilateral] 04/28/21 04/28/21 04/28/21 08:45 08:49 08:50 Temperature Pulse Rate 84 94 H 96 H Respiratory Rate Blood Pressure 123/80 O2 Sat by Pulse 98 97 Oximetry O2 Sat by Pulse Oximetry [ Bilateral] 04/28/21 04/28/21 04/28/21 08:55 09:00 09:04 Temperature Pulse Rate 97 H 97 H 82 Respiratory Rate Blood Pressure 115/72 O2 Sat by Pulse 97 98 Oximetry O2 Sat by Pulse Oximetry [ Bilateral] 04/28/21 04/28/21 04/28/21 09:05 09:10 09:15 Temperature Pulse Rate 101 H 99 H 98 H Respiratory Rate Blood Pressure O2 Sat by Pulse 98 97 98 Oximetry O2 Sat by Pulse Oximetry [ Bilateral] 04/28/21 04/28/21 04/28/21 09:20 09:25 09:30 Temperature Pulse Rate 86 90 90 Respiratory Rate Blood Pressure 109/66 O2 Sat by Pulse 99 98 98 Oximetry O2 Sat by Pulse Oximetry [ Bilateral] 04/28/21 04/28/21 04/28/21 09:35 09:40 09:45 Temperature Pulse Rate 88 90 85 Respiratory Rate Blood Pressure 109/66 O2 Sat by Pulse 97 98 98 Oximetry O2 Sat by Pulse Oximetry [ Bilateral] 04/28/21 04/28/21 09:49 09:50 Temperature Pulse Rate 83 86 Respiratory Rate Blood Pressure 104/62 O2 Sat by Pulse 97 Oximetry O2 Sat by Pulse Oximetry [ Bilateral] - Exam Breasts: deferred Abdomen: Present: normal appearance, soft, normal bowel sounds Vulva: both: normal Uterus: Present: normal FHR: auscultation normal, category 1 Uterine Contraction Monitor Mode: External Cervical Dilatation: 5 Cervical Effacement Percentage: 60 station: -2 Uterine Contraction Pattern: Irregular Uterine Tone Measurement Phase: Resting Uterine Contraction Intensity: Mild Extremities: normal - Labs Labs: Abnormal Labs 04/27/21 04/27/21 04/27/21 20:20 21:44 21:44 MCV 78 L MCH 26 L RDW 15.3 H Creatinine 0.4 L Urine WBC (Auto) 9.0 H Laboratory Results - last 24 hr 04/27/21 04/27/21 04/27/21 20:20 21:44 21:44 WBC 8.9 RBC 4.82 Hgb 12.4 Hct 37.4 MCV 78 L MCH 26 L MCHC 33 RDW 15.3 H Plt Count 170 Creatinine 0.4 L Estimated GFR > 60 Uric Acid 4.9 AST 18 ALT 12 Lactate Dehydrogenase 153 Urine Color Yellow Urine Turbidity Clear Urine pH 6.0 Ur Specific Hester 1.015 Urine Protein <15 mg/dl Urine Glucose (UA) Neg Urine Ketones Neg Urine Blood Neg Urine Nitrite Neg Urine Bilirubin Neg Urine Urobilinogen < 2.0 Ur Leukocyte Esterase Neg Urine WBC (Auto) 9.0 H Urine RBC (Auto) 3.0 U Epithel Cells (Auto) 4.0 Urine Mucus Few Syphilis IgG Antibody Blood Type Antibody Screen 04/27/21 04/27/21 23:20 23:20 WBC RBC Hgb Hct MCV MCH MCHC RDW Plt Count Creatinine Estimated GFR Uric Acid AST ALT Lactate Dehydrogenase Urine Color Urine Turbidity Urine pH Ur Specific Hester Urine Protein Urine Glucose (UA) Urine Ketones Urine Blood Urine Nitrite Urine Bilirubin Urine Urobilinogen Ur Leukocyte Esterase Urine WBC (Auto) Urine RBC (Auto) U Epithel Cells (Auto) Urine Mucus Syphilis IgG Antibody Nonreactive Blood Type B NEGATIVE Antibody Screen Negative
[2021-04-28] MEDS ORDERED: SODIUM CHLORIDE 0.9% 1000 ML 1,000 ML IV SCH (11:00)
[2021-04-28] MEDS ORDERED: oxyCODONE /ACETAMINOPHEN 5-325MG TAB PO PRN (12:40)
[2021-04-28] MEDS ORDERED: ONDANSETRON 4 MG/2 ML INJ IV PRN (12:40)
[2021-04-28] MEDS ORDERED: LANOLIN/ZINC/DIMETHICONE (LANSINOH) 7 GM TP PRN (12:40)
[2021-04-28] MEDS ORDERED: PROMETHAZINE 25 MG TAB PO PRN (12:40)
[2021-04-28] MEDS ORDERED: PROMETHAZINE 25 MG RECT SUPP PR PRN (12:40)
[2021-04-28] MEDS ORDERED: WITCH HAZEL/ GLYCERIN PAD TP PRN (12:40)
[2021-04-28] MEDS ORDERED: MAGNESIUM HYDROXIDE (MOM) ORAL LIQD UDC PO PRN (12:40)
[2021-04-28] MEDS ORDERED: diphenhydrAMINE 25 MG CAP PO PRN (12:40)
--- NOTE | 2021-04-28 13:04 | Procedure Note ---
OB Delivery Note - Delivery Date of Delivery: 04/28/21 Surgeon: BUDDY BEATTY Estimated blood loss: 300cc - Vaginal Delivery presentation: vertex Delivery position: OP Intrapartum events: meconium, mult.variable deceleratio, other(please specify) (CHTN, RH neg) Delivery induction: none Delivery augmentation: rupture of membranes, pitocin Delivery monitor: external FHT, external uterine, internal FHT (difficulty tracing FHT and uc), internal uterine Route of delivery: Delivery placenta: manual Delivery cord: 3 umbilical vessels Episiotomy: none Delivery laceration: none Anesthesia: epidural Delivery comments: of a viable live male infant in OP position over and intact perineum. Spontaneous delivery of 's head and shoulders. Infant was placed on mom's chest for skin to skin bonding. Delayed cord clamping while NICU nurse dried and stimulated baby. Cord was clamped x2 and FOB was guided in cutting the cord. Baby was taken to warmer by NICU nurse for an initial assess 9/9. Upon controlled traction of placenta the cord avulsed requiring manual removal of the placenta. After several unsuccessful attempts to remove the placenta, the placenta was removed intact with 3CV by Dr Choudhary. FF@ U2 with manual massage and IV Pitocin. QBL 300cc. FW 3429 Gms. Mom and baby was left in stable conditi on with nurse. Dr Davis was notified at time of avulsion and appeared at the bedside after placenta was already out. An US revealed no retained placenta products. - A at 1 minute: 9 at 5 minutes: 9 Infant Gender: Male
--- NOTE | 2021-04-28 13:24 | Ultrasound Report ---
ULTRASOUND PELVIC LIMITED HISTORY: Assess for retained placental products TECHNIQUE: Transabdominal ultrasound with color Doppler imaging COMPARISON: None. FINDINGS: Recent uterus is noted. The endometrial stripe measures 5 mm. No convincing joe ined products of conception are identified on ultrasound. There is trace fluid in the cervical canal which probably represents blood products. IMPRESSION: No evidence for retained products of conception. The endometrium measures 5 mm. Signer Name: Evert Ng Jr, MD Signed: 04/28/2021 1:20 PM Workstation Name: [id number]
[2021-04-28] MEDS: IBUPROFEN 600 MG TAB PO SCH ×2 (13:43→18:56)
--- NOTE | 2021-04-28 13:44 | Event Note ---
Date: 04/28/21 I was marshalled into RM 10 with regards to a retained placenta with broken-off umbilical cord. The credit control manager was in attendance. With patient's verbal consent I proceeded to manually retrieve the placenta. Placenta appeared to be whole. The Associate Manager [employer] was reminded to obtain a pelvic ultrasound to make sure all placental tissues were removed and she agreed.
[2021-04-29 01:06] LABS: Hematocrit 32.4 % (30.3-42.9); Hemoglobin 10.6 gm/dl (10.1-14.3)
--- NOTE | 2021-04-29 09:57 | Progress Note ---
Assessment and Plan PPD #1 A: S/P with manual placenta removal P: D/c home per pt's request Subjective - Subjective Date of service: 04/29/21 Principal diagnosis: s/p Patient reports: appetite normal, voiding normally, pain well controlled, flatus, ambulating normally : doing well, bottle feeding Objective - Vital Signs Latest vital signs: Vital Signs Temp Pulse Resp BP BP Pulse Ox Pulse Ox 04/29/21 08:17 98.0 F 84 18 117/80 99 04/28/21 23:57 97.9 F 99 H 18 108/63 98 04/28/21 22:29 89 122/79 04/28/21 21:03 98.3 F 100 H 18 126/81 98 04/28/21 20:00 96 04/28/21 16:29 98.0 F 82 18 121/72 97 04/28/21 14:20 98.8 F 92 H 20 113/87 98 96 04/28/21 13:43 92 H 134/78 04/28/21 13:40 92 H 99 04/28/21 13:35 88 98 04/28/21 13:34 89 134/78 04/28/21 13:30 92 H 98 04/28/21 13:25 91 H 99 04/28/21 13:20 92 H 98 04/28/21 13:15 82 98 04/28/21 13:10 93 H 98 04/28/21 13:05 101 H 98 04/28/21 13:00 88 98 04/28/21 12:55 92 H 99 04/28/21 12:50 97 H 98 04/28/21 12:49 99 H 184/84 04/28/21 12:45 102 H 98 04/28/21 12:42 98 H 128/76 04/28/21 12:40 83 98 04/28/21 12:35 98 H 100 04/28/21 12:34 90 132/72 04/28/21 12:30 90 100 04/28/21 12:25 102 H 99 04/28/21 12:20 121 H 98 04/28/21 12:15 98 H 99 04/28/21 12:10 96 H 98 04/28/21 12:05 95 H 99 04/28/21 12:00 103 H 98 04/28/21 11:55 96 H 98 04/28/21 11:50 83 96 04/28/21 11:49 113 H 146/77 94 04/28/21 11:45 100 H 98 04/28/21 11:40 117 H 97 04/28/21 11:35 91 H 97 04/28/21 11:34 100 H 136/79 04/28/21 11:33 94 H 93 04/28/21 11:30 91 H 98 04/28/21 11:25 102 H 94 04/28/21 11:20 91 H 97 04/28/21 11:19 93 H 131/81 04/28/21 11:15 121 H 97 04/28/21 11:10 93 H 98 04/28/21 11:05 98 H 99 04/28/21 11:04 92 H 130/70 04/28/21 11:00 100 H 97 04/28/21 10:55 95 H 98 04/28/21 10:50 94 H 99 04/28/21 10:49 92 H 115/64 04/28/21 10:45 93 H 98 04/28/21 10:40 96 H 98 04/28/21 10:35 101 H 97 04/28/21 10:34 93 H 130/80 04/28/21 10:30 100 H 97 04/28/21 10:25 106 H 98 04/28/21 10:20 100 H 120/73 97 04/28/21 10:15 90 97 04/28/21 10:10 94 H 96 04/28/21 10:05 85 101/61 97 04/28/21 10:00 86 96 04/28/21 09:55 92 H 97 Intake and Output 04/28/21 04/29/21 04/29/21 22:59 06:59 14:59 Intake Total 120 120 120 Output Total 600 Balance -480 120 120 Intake: Oral 120 120 120 Output: Urine 600 Void 600 Other: Total, Intake Amount 120 120 120 Total, Output Amount 600 # Voids Void 1 1 1 - Exam Breasts: Present: normal Abdomen: Present: normal appearance, soft, normal bowel sounds Vulva: both: normal Uterus: Present: normal, firm, fundal height below umbilicus Extremities: Present: normal
--- NOTE | 2021-04-29 10:12 | Discharge Summary ---
Providers - Providers Date of Admission: 04/28/21 12:00 Date of discharge: 04/29/21 Attending physician: NEVA POZO Primary care physician: IDRIS STRICKLAND Hospitalization Reason for admission: active labor, IUP at term Delivery: Episiotomy: none Laceration: none Other procedures: other (manual delivery of placenta) complications: other (cord avulsion with retained placenta) Discharge diagnosis: IUP at term delivered baby: male Hospital course: Pt was admitted to [facility] in labor. She had a with a cord avulsion and retained placenta. Placenta was manually removed by Dr Choudhary. See H&P. delivery summary, and pp notes. Pt requested to go home today. She was d/c'd home in stable condition. Condition at discharge: Stable Disposition: - TO HOME OR SELFCARE Plan - Discharge Medications Prescriptions: Ibuprofen [Ibu-200] 600 mg PO Q6H PRN #60 tablet PRN Reason: Mild Pain Unrelieved By Apap labetaloL [Labetalol 200mg TAB] 200 mg PO BID #120 tablet - Provider Discharge Summary Activity: routine, no sex for 6 weeks, no heavy lifting 4 weeks, no strenuous exercise Diet: routine Instructions: routine Additional instructions: [] Smoking cessation referral if applicable(refer to patient education folder for contact #) [] Refer to [facility] Booklet Call your doctor immediately for: * Fever > 100.5 * Heavy vaginal bleeding ( >1 pad per hour) * Severe persistent headache * Shortness of breath * Reddened, hot, painful area to leg or breast * Drainage or odor from incision. * Keep incision clean and dry at all times and follow doctor's instructions regarding bathing/showering - Follow up plan Follow up: IDRIS STRICKLAND MD [Primary Care Provider] - 6 Weeks
--- NOTE | 2021-04-29 12:15 | Post Anesthesia Evaluation ---
- Post Anesthesia Evaluation Patient Participated: Yes Airway Patent: Yes Stable Respiratory Function: Yes Nausea/Vomiting: No Temp > 96.8F: Yes Pain Manageable: Yes Adequeate Hydration: Yes Anesthesia Complications: No Block Receding Appropriately: Yes
[2021-04-29] MEDS: IBUPROFEN 600 MG TAB PO SCH (14:20)
[2021-04-29 15:59] VITALS: BP 120/84
== END 2021-04-29 16:00 | disposition home or self-care (01) | DRG 767 ==
LOC: TRG 19:06 → APU 19:11 → TRG 22:29 → APU 22:29 → LD 23:08 → OBSVTOIN 04-28 12:00 → OB 04-28 14:33
PROVIDERS: ADMIT Obstetrics & Gynecology; ATTEND Obstetrics & Gynecology
PROC: 10E0XZZ Delivery of Products of Conception, External Approach (ICD-10-PCS; principal; 2021-04-28)
PROC: 10907ZC Drainage of Amniotic Fluid, Therapeutic from Products of Conception, Via Natural or Artificial Opening (ICD-10-PCS; 2021-04-28)
PROC: 10D17Z9 Manual Extraction of Products of Conception, Retained, Via Natural or Artificial Opening (ICD-10-PCS; 2021-04-28)
PROC: 3E0R3BZ Introduction of Anesthetic Agent into Spinal Canal, Percutaneous Approach (ICD-10-PCS; 2021-04-28)
PROC: 00HU33Z Insertion of Infusion Device into Spinal Canal, Percutaneous Approach (ICD-10-PCS; 2021-04-28)
PROC: 10H07YZ Insertion of Other Device into Products of Conception, Via Natural or Artificial Opening (ICD-10-PCS; 2021-04-28)
DX: O10.02 Pre-existing essential hypertension complicating childbirth (principal); O73.0 Retained placenta without hemorrhage; O77.0 Labor and delivery complicated by meconium in amniotic fluid; O76 Abnormality in fetal heart rate and rhythm complicating labor and delivery; Z20.822 Contact with and (suspected) exposure to COVID-19; O24.429 Gestational diabetes mellitus in childbirth, unspecified control; Z3A.37 37 weeks gestation of pregnancy; Z37.0 Single live birth; Z91.19 Patient's noncompliance with other medical treatment and regimen
CPT/HCPCS: 36415; 59025; 76857; 81001; 82565; 83615; 84450; 84460; 84550; 85014; 85018; 85027; 85461; 86592; 86850; 86900; 86901; 87086; 88307; 99211; G0378; G0463; J2590; J2790; J7030; J7120; U0003

== ENCOUNTER 2022-02-25 22:51 | Emergency (ER) | payer MEDICAID ==
[2022-02-25 23:07] VITALS: BP 137/108
[2022-02-26] MEDS ORDERED: ACETAMINOPHEN 500 MG TAB PO ONE (02:02)
[2022-02-26 02:49] LABS: Basophils % (Auto) 0.4 % (0.0-1.8); Eosinophils # (Auto) 0.2 K/mm3 (0.0-0.4); Eosinophils % (Auto) 1.5 % (0.0-4.3); Hematocrit 40.2 % (30.3-42.9); Lymphocytes # (Auto) 2.3 K/mm3 (1.2-5.4); Lymphocytes % (Auto) 21.7 % (13.4-35.0); Mean Corpuscular HGB Conc 33 % (30-34); Mean Corpuscular Volume 75 fl (79-97); Monocytes # (Auto) 0.5 K/mm3 (0.0-0.8); Monocytes % (Auto) 4.7 % (0.0-7.3); Platelet Count 289 K/mm3 (140-440); Red Blood Count 5.33 M/mm3 (3.65-5.03); Red Cell Distribution Width 13.6 % (13.2-15.2)
--- NOTE | 2022-02-26 02:58 | Emergency Department Report ---
ED General Adult HPI - General Chief complaint: Chest Pain Stated complaint: CHEST PAIN Time Seen by Provider: 02/26/22 02:01 Source: patient Mode of arrival: Ambulatory Limitations: No Limitations - History of Present Illness Initial comments: Patient is a 37-year-old female wtih hx of HTN, tx'd with labetolol po, who presents for left anterior lateral chest wall pain. Patient rates pain at 3/10 exacerbated by moving and lifting and rotating left shoulder. pt denies fall injury or trauma. There has been no fever or chills, no n/v, no back pain , no sob, pt does endorses malaise and dizziness intermittent. LMP 2 weeks ago. Pt denies dysuria , frequency, or urgency. Severity scale (0 -10): 8 - Related Data Home Medications Medication Instructions Recorded Confirmed Last Taken Pnv Plus Multivit Tab 1 cap PO QDAY 11/24/15 11/25/15 11/23/15 1 Previous Rx's Medication Instructions Recorded Last Taken Type Ibuprofen [Ibu-200] 600 mg PO Q6H PRN #60 tablet 04/29/21 Unknown Rx labetaloL [Labetalol 200mg TAB] 200 mg PO BID #120 tablet 04/29/21 Unknown Rx Naproxen 500 mg PO BID PRN #30 tab 02/26/22 Unknown Rx Allergies Allergy/AdvReac Type Severity Reaction Status Date / Time No Known Allergies Allergy Verified 11/24/15 20:13 ED Review of Systems ROS: Stated complaint: CHEST PAIN Other details as noted in HPI Constitutional: malaise. denies: chills, fever Eyes: denies: eye pain, eye discharge, vision change ENT: denies: ear pain, throat pain Respiratory: cough. denies: shortness of breath, wheezing Cardiovascular: chest pain. denies: palpitations Endocrine: no symptoms reported Gastrointestinal: denies: abdominal pain, nausea, vomiting, diarrhea, constipation Genitourinary: denies: urgency, dysuria, frequency, hematuria, discharge Musculoskeletal: denies: back pain, joint swelling, arthralgia Skin: denies: rash, lesions Neurological: denies: headache, weakness, paresthesias, vertigo Psychiatric: denies: anxiety, depression, auditory hallucinations, visual hallucinations, homicidal thoughts, suicidal thoughts Hematological/Lymphatic: denies: easy bleeding, easy bruising ED Past Medical Hx - Past Medical History Hx Hypertension: Yes Hx Congestive Heart Failure: No Hx Diabetes: Yes (2011) Hx Deep Vein Thrombosis: No Hx Renal Disease: No Hx Sickle Cell Disease: No Hx Headaches / Migraines: Yes Hx Seizures: No Hx Asthma: No Hx COPD: No Hx HIV: No - Social History Smoking Status: Never Smoker - Medications Home Medications: Home Medications Medication Instructions Recorded Confirmed Last Taken Type Pnv Plus Multivit Tab 1 cap PO QDAY 11/24/15 11/25/15 11/23/15 History 1 Ibuprofen [Ibu-200] 600 mg PO Q6H PRN #60 tablet 04/29/21 Unknown Rx labetaloL [Labetalol 200mg TAB] 200 mg PO BID #120 tablet 04/29/21 Unknown Rx Naproxen 500 mg PO BID PRN #30 tab 02/26/22 Unknown Rx ED Physical Exam - General Limitations: No Limitations General appearance: alert, in no apparent distress - Head Head exam: Present: normocephalic, normal inspection - Eye Eye exam: Present: EOMI Pupils: Present: normal accommodation - ENT ENT exam: Present: mucous membranes moist - Neck Neck exam: Present: normal inspection, full ROM. Absent: tenderness - Respiratory Respiratory exam: Present: normal lung sounds bilaterally, chest wall tenderness (left latera anterior chest wall tenderness to deep palpation, there is no crepitus no ecchymosis no step-off no flail chest. Lung sounds are clear throughout). Absent: respiratory distress, wheezes, stridor - Cardiovascular Cardiovascular Exam: Present: regular rate, normal rhythm, normal heart sounds. Absent: systolic murmur, diastolic murmur, rubs, gallop - GI/Abdominal GI/Abdominal exam: Present: soft, normal bowel sounds. Absent: distended, tenderness, guarding, rebound, rigid, bruit, hernia - Rectal Rectal exam: Present: deferred - Extremities Exam Extremities exam: Present: full ROM, normal capillary refill - Expanded Upper Extremity Exam Left Shoulder Exam: Present: full ROM. Absent: tenderness, swelling, abrasion, laceration, ecchymosis, deformity, crepidus, dislocation, erythema, tenderness over AC joint Neuro motor exam: Present: wrist extension intact, thumb opposition intact, thumb IP flexion intact, thumb adduction intact, fingers 2-5 abduction intact Neurosensory exam: Present: radial nerve intact - Back Exam Back exam: Present: normal inspection, full ROM. Absent: CVA tenderness (R), CVA tenderness (L) - Neurological Exam Neurological exam: Present: alert, oriented X3, CN II-XII intact, normal gait - Expanded Neurological Exam Expanded Patient oriented to: Present: person, place, time Speech: Present: fluid speech Motor strength exam: RUE: 5, LUE: 5, RLE: 5, LLE: 5 Best Eye Response ([place]): (4) open spontaneously Best Motor Response ([place]): (6) obeys commands Best Verbal Response ([place]): (5) oriented [place] Total: 15 - Psychiatric Psychiatric exam: Present: normal affect, normal mood. Absent: homicidal ideation, suicidal ideation - Skin Skin exam: Present: warm, dry, intact, normal color. Absent: rash ED Course Vital Signs 02/25/22 02/26/22 23:04 02:18 Temperature 98.1 F Pulse Rate 93 H Respiratory 16 18 Rate Blood Pressure 137/108 O2 Sat by Pulse 100 Oximetry ED Medical Decision Making - Lab Data Result diagrams: 02/26/22 02:29 02/26/22 02:29 Labs 02/26/22 02/26/22 02:29 02:29 WBC 10.6 RBC 5.33 H Hgb 13.0 Hct 40.2 MCV 75 L MCH 25 L MCHC 33 RDW 13.6 Plt Count 289 Lymph % (Auto) 21.7 [place] % (Auto) 4.7 Eos % (Auto) 1.5 Baso % (Auto) 0.4 Lymph # (Auto) 2.3 [place] # (Auto) 0.5 Eos # (Auto) 0.2 Baso # (Auto) 0.0 Seg Neutrophils % 71.7 H Seg Neutrophils # 7.6 Sodium 138 Potassium 4.7 Chloride 101.6 Carbon Dioxide 23 Anion Gap 18 BUN 13 Creatinine 0.7 Estimated GFR > 60 BUN/Creatinine Ratio 19 Glucose 118 H Calcium 9.7 Total Bilirubin < 0.20 AST 18 ALT 21 Alkaline Phosphatase 108 Troponin T < 0.010 Total Protein 8.1 Albumin 4.2 Albumin/Globulin Ratio 1.1 Labs 02/26/22 02/26/22 02/26/22 02:29 02:29 Unknown WBC 10.6 RBC 5.33 H Hgb 13.0 Hct 40.2 MCV 75 L MCH 25 L MCHC 33 RDW 13.6 Plt Count 289 Lymph % (Auto) 21.7 [place] % (Auto) 4.7 Eos % (Auto) 1.5 Baso % (Auto) 0.4 Lymph # (Auto) 2.3 [place] # (Auto) 0.5 Eos # (Auto) 0.2 Baso # (Auto) 0.0 Seg Neutrophils % 71.7 H Seg Neutrophils # 7.6 Sodium 138 Potassium 4.7 Chloride 101.6 Carbon Dioxide 23 Anion Gap 18 BUN 13 Creatinine 0.7 Estimated GFR > 60 BUN/Creatinine Ratio 19 Glucose 118 H Calcium 9.7 Total Bilirubin < 0.20 AST 18 ALT 21 Alkaline Phosphatase 108 Troponin T < 0.010 Total Protein 8.1 Albumin 4.2 Albumin/Globulin Ratio 1.1 Urine Color Straw Urine Turbidity Clear Urine pH 6.0 Ur Specific [place] 1.015 Urine Protein <15 mg/dl Urine Glucose (UA) Neg Urine Ketones Neg Urine Blood Neg Urine Nitrite Neg Ur Reducing Substances Not Reportable Urine Bilirubin Neg Urine Ictotest Not Reportable Urine Urobilinogen < 2.0 Ur Leukocyte Esterase Trace Urine WBC (Auto) 4.0 Urine RBC (Auto) 1.0 U Epithel Cells (Auto) 3.0 Urine Mucus Few Urine HCG, Qual Negative - EKG Data EKG shows normal: sinus rhythm, axis, intervals, QRS complexes, ST-T waves Rate: normal - EKG Data Interpretation: normal EKG (NSR NSTEMI interpreted by ed attending ) - Radiology Data Radiology results: report reviewed, image reviewed CHEST 2 VIEWS INDICATION / CLINICAL INFORMATION: chest pain. COMPARISON: None available. FINDINGS: SUPPORT DEVICES: None. HEART / MEDIASTINUM: No significant abnormality. LUNGS / PLEURA: No significant pulmonary or pleural abnormality. No pneumot horax. ADDITIONAL FINDINGS: No significant additional findings. IMPRESSION: 1. No acute findings. Signer Name: Kyle Kirkpatrick MD Signed: 02/26/2022 3:34 AM Workstation Name: [id number] Transcribed By: TL Dictated By: Kyle Kirkpatrick MD Electronically Authenticated By: Kyle Kirkpatrick MD Signed Date/Time: 02/26/22333 DD/ 3 TD/TT: Print Cancel - Medical Decision Making Patient is a 37-year-old female wtih hx of HTN, tx'd with labetolol po, who presents for left anterior lateral chest wall pain. Patient rates pain at 3/10 exacerbated by moving and lifting and rotating left shoulder. pt denies fall injury or trauma. There has been no fever or chills, no n/v, no back pain , no sob, pt does endorses malaise and dizziness intermittent. LMP 2 weeks ago. Pt denies dysuria , frequency, or urgency. EKG normal sinus rhythm no ST elevated [place], troponin less than 0.01. Chest x-ray clear no infiltrates no opacities. Patient denies chest pain at this time. Patient is alert oriented x3 patient is amatory with steady gait with no acute distress. There is been no shortness of breath no fever chills no nausea or vomiting. Patient denies other stressors. labs noted as above UA / HCG: Critical care attestation.: If time is entered above; I have spent that time in minutes in the direct care of this critically ill patient, excluding procedure time. ED Disposition Clinical Impression: Chest wall pain Disposition: 01 HOME / SELF CARE / HOMELESS Is pt being admited?: No Does the pt Need Aspirin: No Condition: Stable Instructions: Chest Wall Pain Additional Instructions: Take medications as prescribed, including your blood pressure medicine, apply moist heat therapy to the chest wall pain. Follow-up with your primary care doctor in 2 to 3 days. Return to emergency department should symptoms worsen. Prescriptions: Naproxen 500 mg PO BID PRN #30 tab PRN Reason: pain Referrals: JERRI MALLORY MD [Staff Physician] - 2-3 Days BUZZ BEEBE MD [Staff Physician] - 2-3 Days Forms: Work/School Release Form(ED) Time of Disposition: 06:03
[2022-02-26 03:13] LABS: Alanine Aminotransferase 21 units/L (7-56); Albumin 4.2 g/dL (3.9-5); Blood Urea Nitrogen 13 mg/dL (7-17); Calcium 9.7 mg/dL (8.4-10.2); Hemolysis Index 23
[2022-02-26 03:18] LABS: BUN/Creatinine Ratio 19
--- NOTE | 2022-02-26 03:38 | XRay Report ---
CHEST 2 VIEWS INDICATION / CLINICAL INFORMATION: chest pain. COMPARISON: None available. FINDINGS: SUPPORT DEVICES: None. HEART / MEDIASTINUM: No significant abnormality. LUNGS / PLEURA: No significant pulmonary or pleural abnormality. No pneumothorax. ADDITIONAL FINDINGS: No significant additional findings. IMPRESSION: 1. No acute findings. Signer Name: Kyle Kirkpatrick MD Signed: 02/26/2022 3:34 AM Workstation Name: [id number]
[2022-02-26 05:38] LABS: Mucus,Urine FEW /HPF
[2022-02-26 05:41] LABS: HCG Qualitative,Urine Negative (Negative)
[2022-02-26 05:46] LABS: Bilirubin,Urine NEG (Negative); Color,Urine Straw (Yellow)
[2022-02-26 05:47] LABS: Blood,Urine NEG (Negative); Protein,Urine <15 mg/dL mg/dL (Negative); Urobilinogen,Urine < 2.0 mg/dL (<2.0)
[2022-02-26] MEDS ORDERED: IBUPROFEN 800 MG TAB PO ONE (05:57)
--- NOTE | 2022-02-26 13:32 | Electrocardiograph Report ---
[facility] Test Date: 2022-02-25 Test Time: 23:08:59 Pat Name: JENNIFER BROWN Department: Room: Gender: F Flux Core Welder: FLAVIA : 1985 Requested By: MATEUS AYOUB Order Number: [id number] Reading MD: Patito An Measurements Intervals [place] Rate: 86 P: 49 FL: 147 QRS: 9 QRSD: 83 T: 4 QT: 351 QTc: 420 Interpretive Statements Sinus rhythm Probable left atrial enlargement No previous ECG available for comparison Electronically Signed On 02-26-2022 13:31:46 EDT by Patito An
== END 2022-02-26 06:35 | disposition home or self-care (01) ==
LOC: ED 22:51
DX: R07.89 Other chest pain (principal); I10 Essential (primary) hypertension; E11.9 Type 2 diabetes mellitus without complications; G43.909 Migraine, unspecified, not intractable, without status migrainosus
CPT/HCPCS: 36415; 71046; 80053; 81001; 81025; 84484; 85025; 93005; 99284